=== PATIENT | female | born 1975 | race African-American/Black ===

== ENCOUNTER 2016-09-14 10:24 | Emergency (ER) | payer OTHER ==
[2016-09-14] MEDS ORDERED: predniSONE 20 MG TABLET (UD) PO ONE (10:40)
[2016-09-14] MEDS ORDERED: ALBUTEROL SO4 2.5/IPRATROPIUM 0.5 INH SOL 3 ML VIAL.NEB. NEB ONE ×2 (10:40→13:10)
[2016-09-14 10:42] VITALS: BP 130/80; PULSE 90; TEMP 97.9; BMI 19.5
[2016-09-14] MEDS ORDERED: ALBUTEROL SO4 2.5/IPRATROPIUM 0.5 INH SOL 3 ML VIAL.NEB. NEB STA (10:45)
--- NOTE | 2016-09-14 10:46 | PDOC ---
History of Present Illness - General Chief Complaint: Respiratory Stated Complaint: COUGH Time Seen by Provider: 09/14/16 10:26 - History of Present Illness Initial Comments: 09/14/16 10:42 40-year-old female with a past medical history of hypertension, COPD, and a one half pack per day smoking history She also has a history of a prior brain aneurysm Patient is complaining of a few days of congestion and cough, with sometimes feeling like her sputum is thick, and getting stuck in her throat, This gives her a choking sensation and she's having some coughing paroxysms She did try her home nebulizer without relief She states that she feels a little "tight", but is not having any wheezing She denies any fevers or chills She states when she occasionally brings up some sputum it is clear She denies any sore throat She denies any chest pain She denies any other complaints at this time She was formerly on Spiriva, and albuterol when necessary, but she states that her insurance no longer pay for Spiriva and she is no longer on Spiriva Past History - Past Medical History Allergies/Adverse Reactions: Allergies Allergy/AdvReac Type Severity Reaction Status Date / Time latex Allergy Verified 09/14/16 10:27 Sulfa (Sulfonamide Allergy Verified 09/14/16 10:27 Antibiotics) [Sulfa(Sulfonamide Antibiotics)] Home Medications: Ambulatory Orders Hydrochlorothiazide [Hctz -] 25 mg PO DAILY #30 tablet 10/14/12 Albuterol Sulfate Inhaler - [Ventolin HFA Inhaler -] 2 inh IH Q4H PRN #1 inh 11/12 Amlodipine Besylate 10 mg PO DAILY 09/14/16 Azithromycin [Zithromax] 250 mg PO UTDICT #6 tab 09/14/16 Cyclobenzaprine HCl [Flexeril -] 10 mg PO TID 09/14/16 Losartan Potassium 50 mg PO DAILY 09/14/16 Prednisone [Deltasone -] 20 mg PO DAILY #15 tablet 09/14/16 COPD: Yes HTN: Yes - Psycho/Social/Smoking Cessation Hx Anxiety: No Suicidal Ideation: No Smoking Status: Yes Smoking History: Current every day smoker Have you smoked in the past 12 months: No Number of Cigarettes Smoked Daily: 10 Information on smoking cessation initiated: No Hx Alcohol Use: No Drug/Substance Use Hx: No Substance Use Type: None Review of Systems - Review of Systems Able to Perform ROS?: Yes Comments:: 09/14/16 10:43 Review of systems is as per history of present illness and otherwise negative *Physical Exam - Vital Signs Last Vital Signs Temp Pulse Resp BP Pulse Ox 97.9 F 90 16 130/80 90 L 09/14/16 10:36 09/14/16 10:36 09/14/16 10:36 09/14/16 10:36 09/14/16 10:36 - Physical Exam Comments: 09/14/16 10:44 Physical exam Last Vital Signs Temp Pulse Resp BP Pulse Ox 97.9 F 90 16 130/80 90 L 09/14/16 10:36 09/14/16 10:36 09/14/16 10:36 09/14/16 10:36 09/14/16 10:36 GENERAL: The patient is awake, alert, and fully oriented, and in no apparent distress. HEAD: Normal with no signs of trauma. EYES: Sclera anicteric, conjunctiva normal ENT: oropharynx clear without exudates. Moist mucous membranes. Mouth and oropharynx completely benign NECK: Normal range of motion, supple LUNGS: Breath sounds equal, clear to auscultation bilaterally. No wheezes, and no crackles. There is a minimally prolonged expiratory phase, but with good air movement and no wheezing HEART: Regular rate and rhythm, normal S1 and S2 without murmur, rub or gallop. ABDOMEN: Soft, nontender, normoactive bowel sounds. No guarding, no rebound. No masses appreciated. EXTREMITIES: No edema. NEUROLOGICAL: Cranial nerves II through XII grossly intact. Normal speech, normal gait. PSYCH: Normal mood, normal affect. SKIN: Warm, Dry, normal turgor, no rashes or lesions noted. ED Treatment Course - RADIOLOGY Radiology Studies Ordered: Category Date Time Status CHEST PA & LAT [RAD] Stat Radiology 09/14/16 10:41 Ordered NECK SOFT TISSUE [RAD] Stat Radiology 09/14/16 10:41 Ordered Medical Decision Making - Medical Decision Making 09/14/16 13:28 Soft tissue neck NAD Some DJD is noted of the C-spine Chest x-ray-NAD Patient feeling much better after neb and prednisone Most likely mild COPD exacerbation Patient has nebulizers at home, and we'll treat with steroid taper and a Z-Antonio 09/14/16 13:31 repeat pulse ox 100% on room air *DC/Admit/Observation/Transfer Diagnosis at time of Disposition: COPD (chronic obstructive pulmonary disease), Cough - Discharge Dispostion Disposition: HOME Condition at time of disposition: Improved - Prescriptions Prescriptions: Prednisone [Deltasone -] 20 mg PO DAILY #15 tablet Azithromycin [Zithromax] 250 mg PO UTDICT #6 tab - Patient Instructions Additional Instructions: Prednisone taper as directed-start tomorrow Zithromax M-[id number]-as directed-start today Use your inhaler at home as directed every 4 hours Followup with your primary care physician in 24-48 hours Return immediately if you worsen in any way Take your medications as directed - Post Discharge Activity Work/School Note: Back to Work
[2016-09-14] MEDS ORDERED: SODIUM CHLORIDE 1,000 ML IV ONE (13:28)
== END 2016-09-14 13:40 | disposition home or self-care (01) ==
LOC: FER 10:24
PROC: 3E0F7GC Introduction of Other Therapeutic Substance into Respiratory Tract, Via Natural or Artificial Opening (ICD-10-PCS; principal; 2016-09-14)
PROC: 3E0337Z Introduction of Electrolytic and Water Balance Substance into Peripheral Vein, Percutaneous Approach (ICD-10-PCS; 2016-09-14)
DX: J44.9 Chronic obstructive pulmonary disease, unspecified (principal); R05 Cough; F17.210 Nicotine dependence, cigarettes, uncomplicated; I10 Essential (primary) hypertension; Z86.79 Personal history of other diseases of the circulatory system
CPT/HCPCS: 70360-TC; 71020-TC; 94640; 96360; 99281-25